=== PATIENT | female | born 1995 ===

== ENCOUNTER 2023-06-21 13:07 | Outpatient (CLI) | payer OTHER, SELFPAY | END 2023-06-21 13:08 | disposition home or self-care (01) | LOC: NFLDREF 06-22 07:22 | PROVIDERS: PCP Family Medicine; Referring Provider Family Medicine; Visit Provider Family Medicine | DX: F90.2 Attention-deficit hyperactivity disorder, combined type (principal); E66.01 Morbid (severe) obesity due to excess calories; R53.83 Other fatigue; I10 Essential (primary) hypertension | CPT/HCPCS: 80053; 82043; 82306; 82570; 83735; 84443 ==

== ENCOUNTER 2023-08-15 16:09 | Outpatient (CLI) | payer OTHER, SELFPAY | END 2023-08-15 16:10 | disposition home or self-care (01) | PROVIDERS: PCP Family Medicine; Referring Provider Family Medicine; Visit Provider Family Medicine | DX: Z13.6 Encounter for screening for cardiovascular disorders (principal) | CPT/HCPCS: 80061 ==

== ENCOUNTER 2024-01-31 10:00 | Outpatient (RCR) | payer OTHER, SELFPAY | END 2024-05-30 23:59 | disposition home or self-care (01) | PROVIDERS: PCP Family Medicine; Visit Provider Family Medicine | DX: N39.490 Overflow incontinence (principal); N81.89 Other female genital prolapse; Z51.89 Encounter for other specified aftercare | CPT/HCPCS: 97110; 97140; 97162; 97535 ==